=== PATIENT | female | born 1990 | race Native Hawaiian/Other Pacific Islander ===

== ENCOUNTER 2016-12-09 18:22 | Inpatient (IN) | payer OTHER ==
[2016-12-09 18:27] VITALS: BMI 24.7
--- NOTE | 2016-12-09 19:09 | ED PDOC ---
HPI: Psych/Substance Abuse Time Seen by Provider: 12/09/16 18:54 Chief Complaint (Nursing): Substance Abuse Chief Complaint (Provider): Substance Abuse History Per: EMS Additional Complaint(s): Eugene Cordon is a 26 y/o female brought in by EMS on 12/09/2016 for substance abuse. Patient states she ingested an unknown amount of [place] whisky, 10 pills of ativan (0.5 mg each), percocets, and celexa (?). Patient denies suicidal ideation or any attempts. Patient currently lives at home with her . Rest of HPI/ROS is limited due to patient's clinical state of intoxication. Past Medical History Reviewed: Historical Data, Nursing Documentation, Vital Signs Vital Signs: Last Vital Signs Temp 98 F 12/09/16 18:25 Pulse 70 12/09/16 18:25 Resp 16 12/09/16 18:25 BP 114/74 12/09/16 18:25 Pulse Ox 100 12/09/16 18:25 - Medical History PMH: Anxiety, Depression - Surgical History Surgical History: No Surg Hx - Family History Family History: States: Unknown Family Hx - Allergies Allergies/Adverse Reactions: Allergies Allergy/AdvReac Type Severity Reaction Status Date / Time Unobtainable Allergy Verified 12/09/16 18:42 Review of Systems Review Of Systems: ROS cannot be obtained secondary to pt's inabilty to answer questions. Physical Exam - Reviewed Nursing Documentation Reviewed: Yes Vital Signs Reviewed: Yes - Physical Exam Appears: Positive for: No Acute Distress (pt is somnolent, arousable to verbal stimuli ). Negative for: Non-toxic Head Exam: Positive for: ATRAUMATIC, NORMOCEPHALIC Skin: Positive for: Normal Color, Warm, Dry Eye Exam: Positive for: Normal appearance, EOMI, PERRL Neck: Positive for: Normal, Painless ROM, Supple Cardiovascular/Chest: Positive for: Regular Rate, Rhythm. Negative for: Murmur Respiratory: Positive for: Normal Breath Sounds. Negative for: Wheezing, Respiratory Distress Extremity: Positive for: Normal ROM. Negative for: Deformity, Swelling Neurologic/Psych: Positive for: Alert, Oriented. Negative for: Motor/Sensory Deficits - Laboratory Results Result Diagrams: 12/09/16 19:10 12/09/16 19:10 - ECG O2 Sat by Pulse Oximetry: 100 Medical Decision Making Medical Decision Makin:54 Initial Impression- Overdose Initial Plan- * EKG * Acetaminophen * Alcohol Serum * CMP * Drug Screen * Salicylate * Urine Preg * Urine Dip * CBC w/ differential * CXR * Urinalysis * 1:1 Observation * Re-evaluate Pt will be placed under ED Observation. See ED OBS for further progress. 23:30 Pt medically cleared for psychiatric admission. Documented by Natividad Sigala, acting as a scribe for Amisha Romero MD. All medical record entries made by the Scribe were at my direction and personally dictated by me. I have reviewed the chart and agree that the record accurately reflects my personal performance of the history, physical exam, medical decision making, and the department course for this patient. I have also personally directed, reviewed, and agree with the discharge instructions and disposition. ED OBSERVATION Date of observation admission: 12/09/16 Time of observation admission: 19:03 - Observation admission statement Patient is being placed in observation because:: Pt is clinically intoxicated - Goals of Observation Goals of observation are:: Clinical sobriety, re-evaluation, disposition. Disposition - Clinical Impression Clinical Impression: Depression, Alcohol intoxication - Patient ED Disposition Is Patient to be Admitted: Yes - Disposition Disposition Time: 23:33 Condition: STABLE - Pt Status Changed To: Hospital Disposition Of: Inpatient - Admit Certification Admit to Inpatient:: After my assessment, the patient will require hospitalization for at least two midnights. This is because of the severity of symptoms shown, intensity of services needed, and/or the medical risk in this patient being treated as an outpatient. - POA Present On Arrival: None
[2016-12-09 19:23] LABS: BASO % 0.2 % (0.0-2.0); EOS % 0.2 % (0.0-4.0); HEMATOCRIT 39.9 % (34.0-47.0); LYMPH # 1.3 K/uL (1.0-4.3); LYMPH % 19.6 % (20.0-40.0); MEAN CELL VOLUME 91.3 fl (81.0-99.0); MEAN CORPUSCULAR HEMOGLOBIN 30.7 pg (27.0-31.0); MEAN CORPUSCULAR HGB CONC 33.7 g/dL (33.0-37.0); MEAN PLATELET VOLUME 8.6 fl (7.2-11.7); MONO # 0.3 K/uL (0.0-0.8); MONO % 4.4 % (0.0-10.0); NEUT # 5.1 K/uL (1.8-7.0); NEUT % 75.6 % (50.0-75.0); NRBC % 0.1 % (0.0-0.0); RED CELL DISTRIBUTION WIDTH 12.7 % (11.5-14.5); WHITE BLOOD COUNT 6.8 K/uL (4.8-10.8)
[2016-12-09 19:31] LABS: ALCOHOL SERUM 169 mg/dl (0-10); ALKALINE PHOSPHATASE 73 U/L (38-126); ALT/SGPT 23 U/L (9-52); AST/SGOT 26 U/L (14-36); BILIRUBIN,TOTAL 0.6 mg/dl (0.2-1.3); BLOOD UREA NITROGEN 11 mg/dl (7-17); CALCIUM 9.2 mg/dL (8.4-10.2); CARBON DIOXIDE 19 mmol/L (22-30); CHLORIDE 109 mmol/L (98-107); GFR AFRICAN-AMERICAN > 60; GLUCOSE,RANDOM 99 mg/dL (65-105); POTASSIUM 3.7 MMOL/L (3.6-5.0); SODIUM 148 mmol/l (132-148)
[2016-12-09] MEDS ORDERED: Sodium Chloride 0.9% 1,000 ML IV STA (19:41)
[2016-12-09 21:28] LABS: RBC URINE < 1 /hpf (0-3); URINE BILIRUBIN NEGATIVE (NEGATIVE); URINE BLOOD SMALL (NEGATIVE); URINE COLOR YELLOW (YELLOW); URINE GLUCOSE (UA) NEG (Normal); URINE KETONE TRACE mg/dL (NEGATIVE); URINE LEUKOCYTE ESTERASE NEG Leu/uL (Negative); URINE PROTEIN NEGATIVE (NEGATIVE); URINE UROBILINOGEN 0.2-1.0 mg/dL (0.2-1.0); WBC URINE < 1 /hpf (0-5)
[2016-12-09 23:39] VITALS: O2SAT 98
[2016-12-10] MEDS ORDERED: Alum-Mag Hydrox-Simethicone Susp (30 mL) PO PRN (00:52)
[2016-12-10] MEDS ORDERED: Magnesium Hydroxide Susp 30 ml UD PO PRN (00:52)
[2016-12-10] MEDS ORDERED: DiphenhydrAMINE 50 mg/ml Inj IM PRN (00:52)
--- NOTE | 2016-12-10 09:58 | RAD ---
PROCEDURE: CHEST RADIOGRAPH, 1 VIEW HISTORY: Overdose COMPARISON: None available. FINDINGS: LUNGS: The lungs are clear. PLEURA: No pneumothorax or pleural fluid seen. CARDIOVASCULAR: Normal. OSSEOUS STRUCTURES: No significant abnormalities. VISUALIZED UPPER ABDOMEN: Normal. OTHER FINDINGS: None. IMPRESSION: No acute findings.
--- NOTE | 2016-12-10 12:10 | PCM.PSYCH ---
Initial Psychiatric Evaluation - Initial Psychiatric Evaluation Type of Admission: Voluntary Legal Status: Capacity Chief Complaint (in patient's own words): i am not depressed Patient's Reaction to Hospitalization: cooperative, but ambivalent History of Present Illness and Precipitating Events: 26 yo polish female living in [place] and working as a computer drafter. was brought to er by police after neighbor called because of loud argument. pt apparently caught in an infidelity. she was intoxicated (bal around 169) and took prescription benzo. pt stated at that time she wanted to . she reports she does not feel that she wants to now. she feels being intoxicated was a major contributor to her behavior. she reports she is unhappy in her marriage and fights a lot. reports no problems at work. no change in sleep, appetite or energy level. does not report feeling sad or hopeless. she does report 2 previous episodes of depression- while in college (around 2011) where she had low energy, anhedonia, appetite increase- weighed 70lbs more than now and suicidal thoughts. she did not make any attempt. she states her symptoms resolved when she graduated. she was in treatment and given prescription for celexa that she did not take. in may last year pt was started on wellbutrin for a depression that started in the summer. she also saw a therapist. she took the wellbutrin for 2 weeks and found it helped her focus at work, but did not change her mood. she state the depression symptoms resolved on their own. she denies suicidal behaviors at that time. pt states she drinks alcohol socially 4 days a week or so. she does not use any illicit substances. she denies any manic or psychotic symptoms. Current Medications: Active Medications Generic Name Dose Route Start Last Admin Trade Name Freq PRN Reason Stop Dose Admin Acetaminophen 650 mg 12/10/16 00:52 Tylenol 325mg Tab PO Q4 PRN headache or pain Al Hydrox/Mg Hydrox/Simethicone 30 ml 12/10/16 00:52 Maalox Plus 30 Ml PO Q4 PRN Dyspepsia Diphenhydramine HCl 50 mg 12/10/16 00:52 Benadryl PO Q6 PRN Extrapyramidal Symptoms Diphenhydramine HCl 50 mg 12/10/16 00:52 Benadryl IM Q6 PRN Extrapyramidal S/S Unable PO Diphenhydramine HCl 50 mg 12/10/16 02:55 Benadryl PO HS PRN Sleep Folic Acid 1 mg 12/10/16 12:00 Folic Acid PO DAILY MUKESH Haloperidol 5 mg 12/10/16 00:52 Haldol PO Q4 PRN Agitation Haloperidol Lactate 5 mg 12/10/16 00:52 Haldol IM Q4 PRN Agitation, Unable to Take PO Lorazepam 2 mg 12/10/16 00:52 Ativan PO Q4 PRN Anxiety/Agitation Lorazepam 2 mg 12/10/16 00:52 Ativan IM Q4 PRN Anxiety/Agitation,Unable PO Magnesium Hydroxide 30 ml 12/10/16 00:52 Milk Of Magnesia PO HS PRN Constipation Thiamine HCl 100 mg 12/10/16 12:00 Vitamin B1 Tab PO DAILY MUKESH no medications. Past Psychiatric History - Past Psychiatric History Previous Treatment History: None Prior Professional Help: as per hpi History of Abuse: denies History of ETOH/Drug Use: drinks 4 days per week socially. may be minimizing. denies other substance use. History of Family Illness: pt states in [place] they do not talk about depression. she is unware of any family history Pertinent Medical Hx (Current Medical&Sleep Prob, Allergies): Allergies Allergy/AdvReac Type Severity Reaction Status Date / Time No Known Allergies Allergy Verified 12/10/16 01:14 Review of Systems - Psychiatric Psychiatric: As Per HPI Mental Status Examination - Personal Presentation Personal Presentation: Looks stated age - Affect Affect: Constricted - Motor Activity Motor Activity: Calm - Reliability in Providing Information Reliability in Providing Information: Good - Speech Speech: Organized - Mood Mood: Anxious - Formal Thought Process Formal Thought Process: No Impairment - Obsessions/Compulsions Obsessions: No Compulsions: No - Cognitive Functions Orientation: Person, Place, Situation, Time Sensorium: Alert Attention/Concentration: Attentive Abstract Thinking: [place] Estimate of Intelligence: Average Judgement: Intact, as evidence by: Insight regarding need for hospitalization Memory: Recent intact, as evidence by: Ability to recall events of the day, Remote intact, as evidenced by: Abilit to recall sig. life events - Risk Risk: Suicidal (recent attempt, ideations. is future oriented currently. minimizing seriousness of actions) - Strength & Assets Inventory Strength & Assets Inventory: Intelligence, Employment history - Limitations Limitations: Other (marital problems) DSM 5 DX - DSM 5 DSM 5 Diagnosis: major depression recurrent mild alcohol use disorder - Recommended/Plan of Treatment Treatment Recommendations and Plan of Treatment: admit to [facility] for safety and observation gather collateral information provide supportive therapy adjust medications- pt does not feel meds are necessary will refer to outpt individual therapy hospitalist consult monitor for etoh withdrawal Projected ELOS: 2-3 days Prognosis: fair - Smoking Cessation Smoking Cessation Initiated: No Reason for not providing: does not smoke
[2016-12-10 12:45] LABS: ALB/GLOB RATIO 1.1 (1.0-2.1); ALKALINE PHOSPHATASE 66 U/L (38-126); ALT/SGPT 20 U/L (9-52); AST/SGOT 32 U/L (14-36); BILIRUBIN,TOTAL 0.9 mg/dl (0.2-1.3); BLOOD UREA NITROGEN 10 mg/dl (7-17); CALCIUM 9.4 mg/dL (8.4-10.2); CARBON DIOXIDE 24 mmol/L (22-30); CHLORIDE 105 mmol/L (98-107); CHOLESTEROL 100 mg/dL (0-199); GFR AFRICAN-AMERICAN > 60; GLUCOSE,RANDOM 97 mg/dL (65-105); POTASSIUM 4.1 MMOL/L (3.6-5.0); SODIUM 146 mmol/l (132-148); TOTAL PROTEIN 8.4 G/DL (6.3-8.2)
[2016-12-10 13:00] LABS: T4 6.65 ug/dl (5.5-11.0)
[2016-12-10 13:13] LABS: THYROID STIMULATING HORMONE 1.15 mIU/ML (0.46-4.68)
[2016-12-11 08:53] VITALS: BP 112/74; PULSE 94; RESP 20; TEMP 98.1
--- NOTE | 2016-12-11 10:40 | CARD ---
APPROVED REPORT EKG Measurement Heart [id number] <Conclusion> Normal sinus rhythm Normal ECG
--- NOTE | 2016-12-11 14:05 | PCM.PYCHDC ---
Mental Status Examination - Mental Status Examination Orientation: Person, Place, Situation, Time Memory: Intact Mood: Neutral Affect: Broad Speech: Appropriate Attention: WNL Concentration: WNL Association: WNL Fund of Knowledge: WNL Formal Thought Process: No Impairment Description of patient's judgement and insight: fair insight/judgment Psychotic Thoughts and Behaviors: pt denies any auditory/visual hallucinations Suicidal Ideation: No Current Homicidal Ideation?: No Plan: pt denies any suicidal or homicidal thoughts. Discharge Summary - Discharge Note Reason for Hospitalization: suicidal behavior while intoxicated in context of marriage breakup Psychiatric History (includes Medical, Family, Personal Hx): history of 2 previous episodes of depression, responded to therapy. Laboratory Data: Abnormal Lab Results 12/10/16 10:50 Hemoglobin A1c 5.2 RPR Nonreactive Consultations:: List each consultation separately and include: 1. Reason for request. 2. Findings. 3. Follow-up Consultations: seen by the hospitalist Summary of Hospital Course include:: 1. Description of specific treatment plan utilized for patients during their course of treatmen. 2. Summarize the time- course for resolution of acute symptoms and/or regressed behaviors. 3. Describe issues identified and worked on during hospitalization. 4. Describe medication utilized. 5. Describe medical problems identified and treated. 6. Reassessment of suicide risk Summary of Hospital Course: 26 yo [place]rydein[place] female living in [place] and working as a computer systems integrator. was brought to er by police after neighbor called because of loud argument. pt apparently caught in an infidelity. she was intoxicated (bal around 169) and took prescription benzo. pt stated at that time she wanted to . she reports she does not feel that she wants to now. she feels being intoxicated was a major contributor to her behavior. she reports she is unhappy in her marriage and fights a lot. reports no problems at work. no change in sleep, appetite or energy level. does not report feeling sad or hopeless. she does report 2 previous episodes of depression- while in college (around 2011) where she had low energy, anhedonia, appetite increase- weighed 70lbs more than now and suicidal thoughts. she did not make any attempt. she states her symptoms resolved when she graduated. she was in treatment and given prescription for celexa that she did not take. in may last year pt was started on wellbutrin for a depression that started in the summer. she also saw a therapist. she took the wellbutrin for 2 weeks and found it helped her focus at work, but did not change her mood. she state the depression symptoms resolved on their own. she denies suicidal behaviors at that time. pt states she drinks alcohol socially 4 days a week or so. she does not use any illicit substances. she denies any manic or psychotic symptoms. hospital course: pt was admitted to [facility] and oriented to the unit. she was placed on routine safety protocols. she was seen by the hospitalist. pt met with treatment team. she was not endorsing any symptoms of depression, brokc or psychosis. she admitted that her behavior was influenced by alcohol use. she reported that she and her had talked and he would be looking for an apartment for himself. she expressed feeling hopeful about her future and some sense of relief that the marriage was ending. she was agreeable to be referred to outpatient therapy as she felt it was helpful in the past. she was also receptive to feedback that her drinking may be problematic as that it contributed to her dangerous behaviors prior to admission. she was denying any suicidal or homicidal thoughts at the time of discharge and was looking foward to her return back to work. l - Final Diagnosis (DSM 5) Condition upon Discharge: STABLE DSM 5: major depression, mild r/o alcohol use disorder Disposition: HOME/ ROUTINE Follow-up Treatment Plan: follow up with outpatient treatment as directed take medications as prescribed do not use alcohol, tobacco or other illicit substances call 911 if any suicidal or homicidal thoughts no medications - Smoking Cessation Smoking Cessation Medication prescribed: No Reason for not providing: not a smoker - Antipsychotic Medications Pt discharged on 2 or more routine antipsychotic medications: No
== END 2016-12-11 15:45 | disposition home or self-care (01) | DRG 885 ==
LOC: H.ER 18:22 → H.EROBSV 19:03 → UNDOADMOB 19:03 → OBSVTOIN 23:34 → INTOOBSV 23:34 → H.PSYCH 12-10 00:33 → H.EROBSV 12-10 00:33 → OBSVTOIN 12-10 01:07 → H.PSYCH 12-10 01:07 → UNDODISIN 12-11 15:45
PROVIDERS: ADMIT Psychiatry & Neurology Psychiatry; ATTEND Psychiatry & Neurology Psychiatry
DX: F33.0 Major depressive disorder, recurrent, mild (principal); F10.129 Alcohol abuse with intoxication, unspecified; Y90.6 Blood alcohol level of 120-199 mg/100 ml; Z63.0 Problems in relationship with spouse or partner